=== PATIENT | male | born 1970 | race Caucasian/White ===

== ENCOUNTER 2016-07-10 20:36 | Emergency (ER) | payer SELFPAY ==
[~2016-07-10] VITALS: Ht 182.9 cm; Wt 90.7 kg
--- OUTSIDE RECORDS SUMMARY | 2016-07-10 20:41 | XMS REPORT | Referral Summary ---
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 Name Role Phone No PCP, Pt States PCP Encounter VC Date(s): 07/09/15 - 07/09/15 [facility] [address] [place] [address] [place] [phone] Discharge Diagnosis: Contact dermatitis or eczema Discharge Diagnosis: Soft tissue infection Discharge Disposition: 01-Home or Self Care Attending Physician: Roge Glass MD Admitting Physician: Roge Glass MD Vital Signs Most recent to 1 oldest [Reference Range]: Temperature Oral 36.8 degC [35.8-37.3 degC] (07/09/15 5:50 PM) Peripheral Pulse 81 bpm Rate [60-100 bpm] (07/09/15 5:50 PM) Respiratory Rate 18 br/min [14-20 br/min] (07/09/15 5:50 PM) Blood Pressure 140/88 mmHg [90-140/60-90 mmHg] (07/09/15 5:50 PM) SpO2 99 % (07/09/15 5:50 PM) Problem List Condition Effective Dates Status Health Status Informant Tobacco Active patient use(Confirmed) Allergies, Adverse Reactions, Alerts No Known Allergies Medications Bactrim DS 800 mg-160 mg oral tablet 2 tabs, Oral, BID, X 10 days, # 40 tabs, 0 Refill(s) Start Date: 07/09/15 Stop Date: 07/19/15 Status: OrdereddiphenhydrAMINE 50 mg oral capsule 50 mg 1 caps, Oral, TID, # 30 caps, 0 Refill(s) Start Date: 07/09/15 Status: OrderedEucerin topical lotion 1 amilcar, Topical, BID, as needed for dry skin, # 480 mL, 0 Refill(s) Start Date: 07/09/15 Status: Orderedfamotidine 20 mg oral tablet 20 mg 1 tabs, Oral, BID, # 30 Each, 0 Refill(s) Start Date: 07/09/15 Status: OrderedpredniSONE 20 mg oral tablet See Instructions, Start tomorrow: Take 3 tabs x 3 days, 2 tabs x 3 days, 1 tab x 3 days, then d/c, # 18 Each, 0 Refill(s) Start Date: 07/09/15 Status: Ordered Results No data available for this section Immunizations No data available for this section Procedures No data available for this section Social History Social History Type Response Smoking Status Current every day smoker; Tobacco use per day: Pack Assessment and Plan No data available for this section
[2016-07-10] MEDS ORDERED: DEXAMETHASONE PF 10 MG/ML (DECADRON) VIAL IM STA (21:22)
[2016-07-10] MEDS ORDERED: PRED10TA22 PO (21:29)
[2016-07-10] MEDS ORDERED: diphenhydrAMINE 25 MG TAB (BENADRYL) PO ONE (21:30)
[2016-07-10] MEDS ORDERED: LORazepam 1 MG (ATIVAN) TAB PO ONE (21:30)
--- NOTE | 2016-07-10 21:31 | ED Upper Extremity ---
General Chief Complaint: Upper Extremity Stated Complaint: HANDS ITCHING AND SWOLLEN Nursing Triage Note: pt c/o intermittent rash to hands x 2 months. was treated for contact dermatitis that was similar last year. he reports the flare today is worse than normal. reports swelling, pressure, itching, burning. Nursing Sepsis Screen: No Definite Risk History of Present Illness Time seen by provider: 21:10 Initial Comments Evaluation for dermatitis bilateral hands and abdomen. He had similar symptoms in March 2016 and was treated with steroids and it improved. He tried multiple lotions, creams, avoidance of triggers and hypoallergenic products with no improvement in his symptoms Onset: last week Pain/Injury Location: bilateral hand Method of Injury: unknown Allergies and Home Medications Allergies Coded Allergies: No Known Drug Allergies (Unverified , 07/10/16) Home Medications Prednisone 10 Mg Tab.ds.pk #1 10 MG PO UD Prescribed by: IDRIS MAGALLON on 07/10/162128 Constitutional: no symptoms reported see HPI EENTM: no symptoms reported see HPI Respiratory: no symptoms reported see HPI Cardiovascular: no symptoms reported see HPI Gastrointestinal: no symptoms reported see HPI Genitourinary: no symptoms reported see HPI Musculoskeletal: no symptoms reported see HPI Skin: see HPI pruritus rash (to bilateral hands and forearms and epigastric region of abdomen) Psychiatric/Neurological: No Symptoms Reported See HPI All Other Systems Reviewed Negative Unless Noted: Yes Past Ilqschd-Xfcqey-Hlnzdt Hx Patient Social History Alcohol Use: Denies Use Recreational Drug Use: No Smoking Status: Current Everyday Smoker Recent Foreign Travel: No Contact w/Someone Who Travel: No Recent Infectious Disease Expo: No Recent Hopitalizations: No Seasonal Allergies Seasonal Allergies: Yes Surgeries HX Surgeries: Yes (hernia repair) Respiratory Hx Respiratory Disorders: No Cardiovascular Hx Cardiac Disorders: No Neurological Hx Neurological Disorders: No Reviewed Nursing Assessment Reviewed/Agree w Nursing PMH: Yes Physical Exam Vital Signs Vital Sign - Last 12Hours 07/10/16 20:50 Temp 98.9 Pulse 89 Resp 18 B/P 132/92 Pulse Ox 97 O2 Delivery Room Air Capillary Refill : Less Than 3 Seconds General Appearance: WD/WN no apparent distress Neck: non-tender full range of motion supple normal inspection Cardiovascular: normal peripheral pulses regular rate, rhythm no murmur Respiratory: chest non-tender lungs clear normal breath sounds Gastrointestinal: normal bowel sounds non tender soft Neurologic/Psychiatric: no motor/sensory deficits alert normal mood/affect oriented x 3 Skin: warm/dry other (macular rash to hands and lower epigastric abdomen, with areas of excoriation in the webspaces. Significant puritis.) Lymphatic: no adenopathy Progress/Results/Core Measures Results/Orders My Orders Orders-IDRIS MAGALLON Diphenhydramine Tablet (Benadryl Tablet) (07/10/16 21:30) Dexamethasone Pf Injection (Decadron Pf (07/10/16 21:22) Lorazepam Tablet (Ativan Tablet) (07/10/16 21:30) Hydroxyzine Oral (Vistaril Capsule) (07/10/16 21:45) Vital Signs/I&O Vital Sign - Last 12Hours 07/10/16 20:50 Temp 98.9 Pulse 89 Resp 18 B/P 132/92 Pulse Ox 97 O2 Delivery Room Air Blood Pressure Mean: 105 Departure Impression Impression: Primary Impression: Dermatitis, contact Qualified Code: L23.0 - Allergic contact dermatitis due to metals Disposition: HOME, SELF-CARE Condition: Improved Departure-Patient Inst. Decision time for Depature: 21:20 Referrals: NO,LOCAL PHYSICIAN (PCP) Primary Care Physician Patient Instructions: Contact Dermatitis (DC) Add. Discharge Instructions: All discharge instructions reviewed with patient and/or family. Voiced understanding. Wear gloves when around metal products. Try Cetaphil soap and lotion. Follow-up with Dr. Morales [phone] Return to emergency department if symptoms worsen, difficulty breathing, or new problems. Scripts Prednisone 10 Mg Tab.ds.pk10 Mg PO UD #1 PKG Prov:IDRIS MAGALLON 07/10/16 IDRIS MAGALLON Jul 10, 2016 21:31
[2016-07-10 21:45] VITALS: BP 128/88
[2016-07-10] MEDS ORDERED: hydrOXYzine (VISTARIL) 25 MG CAP PO ONE (21:45)
== END 2016-07-10 21:47 | disposition home or self-care (01) ==
LOC: ER 20:38
DX: L25.9 Unspecified contact dermatitis, unspecified cause (principal); F17.210 Nicotine dependence, cigarettes, uncomplicated
CPT/HCPCS: 96372; 99281